=== PATIENT | female | born 1950 | race Caucasian/White ===

== ENCOUNTER 2022-02-11 10:31 | Emergency (ER) | payer MEDICARE, OTHER, SELFPAY ==
[2022-02-11 10:38] VITALS: BP 174/74; PULSE 70; RESP 16; TEMP 36.6; O2SAT 100
--- NOTE | 2022-02-11 10:38 | ED.URI ---
HPI - URI/Sore Throat General Chief Complaint: Upper Respiratory Infection Stated Complaint: cough,drainage,ear pain Time Seen by Provider: 02/11/22 10:42 Source: patient and RN notes reviewed Mode of arrival: ambulatory Limitations: no limitations History of Present Illness HPI Narrative: 71-year-old female presents with concern for ear pain, nasal drainage. She reports she is also had a slight cough for approximately 2 weeks that she attributes to drainage. Reports her symptoms worsened after working in the garden 2 days ago. Reports she is tried Zyrtec 1 time without relief. She denies fever, body aches, chills, sinus pain or pressure, sore throat or drainage in the ear, nausea, vomiting, diarrhea, shortness of breath. MD elicited complaint: cough, rhinorrhea and nasal congestion Related Data Home Medications Medication Instructions Recorded Confirmed amlodipine 5 mg tablet 5 mg PO DAILY 12/12/19 01/01/22 calcium carbonate 500 mg calcium 500 mg PO DAILY 12/12/19 01/01/22 (1,250 mg) capsule cholecalciferol (vitamin D3) 50 2,000 unit PO DAILY 12/12/19 01/01/22 mcg (2,000 unit) capsule hydrochlorothiazide 12.5 mg tablet 12.5 mg PO DAILY 12/12/19 01/01/22 losartan 100 mg tablet 100 mg PO DAILY 12/12/19 01/01/22 Allergies Allergy/AdvReac Type Severity Reaction Status Date / Time diazepam Allergy Intermediate HALLUCINATI Verified 01/01/22 13:08 ONS azithromycin AdvReac Diarrhea Verified 01/01/22 13:08 Review of Systems Review of Systems: CONSTITUTIONAL: Denies malaise, chills, sweats, or fever. EYES: Denies visual changes, redness, or discharge. ENT: Reports rhinorrhea, ear pressure and pain. Congestion, sinus pain, and sore throat. CARDIOVASCULAR: Denies chest pain, palpitations, or edema. RESPIRATORY: Reports mild cough. Denies dyspnea. GASTROINTESTINAL: Denies abdominal pain, nausea, vomiting, diarrhea SKIN: Denies rash or itching. MUSCULOSKELETAL: Denies myalgia. NEUROLOGIC: Denies headache. All systems reviewed & are unremarkable except as noted in HPI and below PMFSH Surgical History Surgical History H/O breast biopsy H/O tubal ligation Family History Family History Mother Hypertension Dementia Father Hypertension Family history of breast cancer Family history of diabetes mellitus Sibling Alzheimer disease Social History Social History Smoking status: Never smoker Alcohol intake: never Comments At time of signature, agree with nursing past medical, surgical, social and family history. There is no relevant family history pertinent to the presenting complaint Exam Narrative: GENERAL: Well-appearing, well-nourished, and in no acute distress. HEAD: Normocephalic EYES: PERRLA, conjunctivae clear ENT: Nares clear, turbinates edematous and boggy, clear discharge. Mucous membranes moist. TM pearly barraza with dull light reflex bilaterally; no tragal tenderness. Oropharynx not erythematous without lesions. Tonsils not enlarged and without exudate, no drooling, no hoarseness, no trismus, uvula midline. NECK: Supple. No lymphadenopathy CHEST: Clear to auscultation, breath sounds equal. No wheezing, rhonchi, rales, or stridor. No respiratory distress, speaks in full sentences. HEART: Regular rate and rhythm. No murmur heard. SKIN: Warm, dry, no rash. NEURO: Alert and oriented x3. PSYCH: Normal mood and affect Course Course Emergency Course: Patient is aware of diagnosis, understands and agrees to treatment plan. Anticipatory guidance given. Patient agrees to follow-up as directed and is aware of reasons to seek care at the emergency department. Portions of this record may have been created with voice recognition software Level of Care: Express Care Visit Vital Signs Vital signs: Reviewed. MDM - URI/Sore Throat MDM Narrative
== END 2022-02-11 11:00 | disposition home or self-care (01) ==
PROVIDERS: Emergency Provider Nurse Practitioner
DX: J01.90 Acute sinusitis, unspecified (principal)
CPT/HCPCS: 99213; G0463

== ENCOUNTER 2023-03-05 11:00 | Outpatient (RCR) | payer MEDICARE, OTHER, SELFPAY ==
[2022-12-05 12:04] VITALS: PULSE 72
== END 2023-03-05 11:41 | disposition home or self-care (01) ==
LOC: ANHCPREHAB 11:00
DX: Z95.5 Presence of coronary angioplasty implant and graft (principal)
CPT/HCPCS: 93798